=== PATIENT | male | born 1990 | race Caucasian/White ===

== ENCOUNTER 2016-08-20 04:39 | Emergency (ER) | payer MEDICAID, OTHER ==
[~2016-08-20] VITALS: Ht 177.8 cm; Wt 86.0 kg
[~2016-08-20 04:39] MED LIST: HYDR-762 PO; IBUP800T25 PO; TERB250T46 PO; TRAM50TA2 PO
[2016-08-20 04:41] VITALS: Ht 177.8 cm; Wt 86.0 kg
[2016-08-20] MEDS ORDERED: ALBU8.5H3 INH (04:52)
[2016-08-20] MEDS ORDERED: CETI10CA PO (04:52)
[2016-08-20] MEDS ORDERED: PRED50TA PO (04:52)
[2016-08-20] MEDS ORDERED: BENZ100C70 PO (04:52)
[2016-08-20] MEDS ORDERED: IBUP-1542 PO (04:52)
--- NOTE | 2016-08-20 04:57 | ERD ---
ER Documentation Chief Complaint Date/Time DATE: 08/20/16 TIME: 04:55 Chief Complaint cough x 6 days w/ phlegm, chest congestion, nasal congestion HPI 26-year-old male presents to emergency department for complaints of cough wheezing and runny nose congestion for 6 days. Dry cough, patient has been having on and off wheezing. Patient does not have any fever or chills. Patient does not have any sick contacts. Patient took [id number] DayQuil turbinates erythematous with mild relief. Patient denies chest pain or palpitations. ROS All systems reviewed and are negative except as per history of present illness. Medications Home Meds Active Scripts Ibuprofen* (Motrin*) 600 Mg Tab, 600 MG PO Q6H Y for PAIN AND OR ELEVATED TEMP, #30 TAB Prov:LAWRENCE CALDWELL NP 08/20/16 Prednisone* (Prednisone*) 50 Mg Tablet, 50 MG PO DAILY, #5 TAB Prov:LAWRENCE CALDWELL NP 08/20/16 Benzonatate* (Tessalon Perle*) 100 Mg Capsule, 100 MG PO Q8H Y for COUGH, #20 CAP Prov:LAWRENCE CALDWELL NP 08/20/16 Cetirizine Hcl* (Zyrtec*) 10 Mg Capsule, 10 MG PO DAILY, #30 TAB.CHEW Prov:LAWRENCE CALDWELL NP 08/20/16 Albuterol Sulfate* (Proair HFA*) 8.5 Gm Hfa.aer.ad, 2 PUFF INH Q4H Y for WHEEZING AND SOB, #1 INHALER Prov:LAWRENCE CALDWELL NP 08/20/16 Tramadol HCl (Tramadol HCl) 50 Mg Tablet, 50 MG PO QHS Y for PAIN, #20 TAB Prov:RUPAL ANTOINE PA-C 02/29/16 Ibuprofen* (Motrin*) 800 Mg Tab, 800 MG PO Q6, #30 TAB take with food Prov:RUPAL ANTOINE PA-C 02/29/16 Ibuprofen* (Motrin*) 800 Mg Tab, 800 MG PO Q8 Y for PAIN AND OR ELEVATED TEMP, # 10 TAB Prov:RICARDO MURRY MD 09/06/15 Hydrocodone Bit-Acetaminophen* ([place]*) 10-325 Mg Tablet, 1 TAB PO Q8 Y for PAIN , #10 TAB Prov:RICARDO MURRY MD 09/06/15 Reported Medications Terbinafine* (Lamisil*) 250 Mg Tablet, 250 MG PO DAILY, TAB 09/06/15 Allergies Allergies: Coded Allergies: No Known Allergy (Unverified , 08/20/16) PMhx/Soc Medical and Surgical Hx: pt denies Surgical Hx History of Surgery: Yes (Knee surgery) Anesthesia Reaction: No Hx Neurological Disorder: No Hx Respiratory Disorders: No Hx Cardiac Disorders: No Hx Psychiatric Problems: No Hx Miscellaneous Medical Probl: Yes (Herniated disk) Hx Alcohol Use: Yes Hx Substance Use: Yes (THC) Hx Tobacco Use: No Smoking Status: Never smoker FmHx Family History: No coronary disease, No diabetes, No other Physical Exam Vitals Vital Signs Date Time Temp Pulse Resp B/P Pulse Ox O2 Delivery O2 Flow Rate FiO2 08/20/16 04:41 98.7 89 20 154/86 99 Physical Exam GENERAL: The patient is well developed and appropriate for usual state of health, in no apparent distress. CHEST: Clear to auscultation bilaterally. There are no rales, wheezes or rhonchi. HEART: Regular rate and rhythm. No murmurs, clicks, rubs or gallops. No S3 or S4. ABDOMEN: Soft, nontender and nondistended. Good bowel sounds. No rebound or guarding. No gross peritonitis. No gross organomegaly or masses. No Cristina sign or McBurney point tenderness. BACK: No midline or flank tenderness. EXTREMITIES: Equal pulses bilaterally. There is no peripheral clubbing, cyanosis or edema. No focal swelling or erythema. Full range of motion. Grossly neurovascularly intact. NEURO: Alert and oriented. Cranial nerves 2-12 intact. Motor strength in all 4 extremities with 5/5 strength. Sensation grossly intact. Normal speech and gait. SKIN: There is no apparent rash or petechia. The skin is warm and dry. HEMATOLOGIC AND LYMPHATIC: There is no evidence of excessive bruising or lymphedema. No gross cervical, axillary, or inguinal lymphadenopathy. Procedures/MDM Medical Decision Making: Patient symptoms are most likely consistent with acute bronchitis, which viral in origin. There is low suspicion for Pneumonia at this time since patients lungs sounds are clear, patient O2 saturation is normal and patient doesnt show any respiratory distress. Patients chest xray doesnt show infiltrates or any other cardiopulmonary emergencies at this time. There is low suspicion for other cardiopulmonary emergencies at this time such as CHF, Pulmonary Embolism, Pneumothorax, or any other cardiopulmonary emergencies at this time. There is low suspicion for sepsis. Patient appears well and is hemodynamically stable. Fever is controlled with medicines. Disposition: Home. Condition: Stable Prescriptions: Tessalon Perles Prelone Zyrtec ibuprofen prednisone albuterol Instructions: Patient is advised to take medications as prescribed. Patient is advised to rest. Patient advised to increase fluid intake, do humidifier at home and if possible, do salt water gargles. Patient is advised that if symptoms are worse, shortness of breath, uncontrolled fever, stridor, vomiting, worst signs and symptoms to return to emergency department immediately. Otherwise, patient is advised to follow up with primary doctor in 5-7 days. Departure Diagnosis: Primary Impression: Acute bronchitis Bronchitis organism: unspecified organism Qualified Code: J20.9 - Acute bronchitis, unspecified organism Condition: Stable Patient Instructions: Bronchitis With Wheezing (Adult) LAWRENCE CALDWELL NP Aug 20, 2016 04:57
== END 2016-08-20 05:04 | disposition home or self-care (01) ==
LOC: FTE 04:39
DX: J20.9 Acute bronchitis, unspecified (principal)
CPT/HCPCS: 99284

== ENCOUNTER → 2017-09-03 | Emergency (ER) | END | disposition home or self-care (01) ==

== ENCOUNTER 2017-09-27 06:57 | Emergency (ER) | END 2017-09-27 09:27 | disposition home or self-care (01) ==

== ENCOUNTER 2017-09-29 03:59 | Emergency (ER) | END 2017-09-29 06:16 | disposition home or self-care (01) ==

== ENCOUNTER 2018-01-19 21:55 | Emergency (ER) | END 2018-01-20 02:00 | disposition home or self-care (01) ==